=== PATIENT | male | born 1950 | race Two or more races ===

== ENCOUNTER 2016-12-06 16:54 | Emergency (ER) | payer MEDICARE, MEDICAID, BC ==
--- NOTE | 2016-12-07 19:04 | ER ---
ADMIT: 12/06/2016 RM/LOC: ER [facility] MR#: [id number] [id number] PATRICK RODAS [address] [place] [address] Emergency Room Report SEX: M AGE: 66 : 1950 DATE: 12/06/2016 The patient is a 66-year-old male, recently diagnosed with stye, placed on amoxicillin and drops. Exam remarkable for toxic appearing, afebrile male with external hordeolum of left lower lid. CT orbits with contrast shows no gas, minimal inflammation, sinusitis, left ethmoid and maxillary. CT head otherwise unremarkable. Normal CBC, CRP minimally elevated at 0.96, lactic 1.9, AST 168, sodium 134. The patient given 2 g Rocephin in department. Discharged with erythromycin ointment t.i.d. followed by warm packs. Add Augmentin 875 mg b.i.d. to amoxicillin. Follow up with Dr. Weir this week. Pratik Weir MD/ jesenia JOB #: [id number] CC: Gurjit Call MD, Attending Physician Elmer Weir MD, Family Physician Elmer Weir MD
== END 2016-12-06 22:25 | disposition home or self-care (01) ==
LOC: ER 16:54
DX: H00.015 Hordeolum externum left lower eyelid (principal); E11.9 Type 2 diabetes mellitus without complications; E78.5 Hyperlipidemia, unspecified; Z79.84 Long term (current) use of oral hypoglycemic drugs; Z79.899 Other long term (current) drug therapy